=== PATIENT | male | born 1990 | race Caucasian/White ===

== ENCOUNTER 2017-04-25 17:02 | Emergency (ER) | payer OTHER ==
[~2017-04-25] VITALS: Ht 182.9 cm; Wt 95.2 kg
[~2017-04-25 17:02] MED LIST: BACTRIM DS TAB1 EACH PO; KEFLEX500 MG PO; NORCO 5-325 TA1 EACH PO
[2017-04-25] MEDS ORDERED: REMERON15 MG PO (17:15)
== END 2017-04-25 17:30 | disposition home or self-care (01) ==
LOC: ED 17:02
DX: Z48.817 Encounter for surgical aftercare following surgery on the skin and subcutaneous tissue (principal); L03.012 Cellulitis of left finger; F17.200 Nicotine dependence, unspecified, uncomplicated; Z90.89 Acquired absence of other organs; Z79.899 Other long term (current) drug therapy
CPT/HCPCS: 99282

== ENCOUNTER 2017-06-09 04:40 | Emergency (ER) | payer OTHER ==
[~2017-06-09] VITALS: Ht 182.9 cm; Wt 902.6 kg
[~2017-06-09 04:40] MED LIST changes: +REMERON15 MG PO
== END 2017-06-09 05:30 | disposition left against medical advice (07) ==
LOC: ED 04:40
DX: N50.812 Left testicular pain (principal); F41.0 Panic disorder [episodic paroxysmal anxiety]; F17.200 Nicotine dependence, unspecified, uncomplicated; Z90.49 Acquired absence of other specified parts of digestive tract; Z79.899 Other long term (current) drug therapy
CPT/HCPCS: 99282

== ENCOUNTER 2020-07-31 09:58 | Emergency (ER) | payer OTHER ==
[~2020-07-31] VITALS: Ht 182.9 cm; Wt 108.9 kg
[~2020-07-31 09:58] MED LIST changes: +CIPRO500 MG PO
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
[2020-07-31] MEDS ORDERED: ONDANSETRON ODT4 MG PO (10:21)
[2020-07-31] MEDS ORDERED: GABAPENTIN300 MG PO (10:21)
[2020-07-31] MEDS ORDERED: OXYCODONE-ACET1 EAC3 PO (10:22)
[2020-07-31] MEDS ORDERED: PERCOCET 10-321 EACH PO (13:03)
== END 2020-07-31 13:15 | disposition home or self-care (01) ==
LOC: ED 09:58
DX: R51.9 Headache, unspecified (principal); F17.200 Nicotine dependence, unspecified, uncomplicated; Z88.0 Allergy status to penicillin; Z88.8 Allergy status to other drugs, medicaments and biological substances
CPT/HCPCS: 99283